=== PATIENT | male | born 1990 | race Two or more races ===

== ENCOUNTER 2016-12-16 00:23 | Emergency (ER) | payer OTHER ==
[2016-12-16] MEDS ORDERED: Cephalexin CAP* 500 MG PO ONE (02:31)
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
[2016-12-16] MEDS ORDERED: Bacitracin OINTMENT* 1 TUBE TOPICAL ONE (02:32)
[2016-12-16 02:58] VITALS: BP 122/81
== END 2016-12-16 02:58 | disposition home or self-care (01) ==
LOC: ED 00:23
DX: T23.112A Burn of first degree of left thumb (nail), initial encounter (principal); X10.2XXA Contact with fats and cooking oils, initial encounter; Y93.9 Activity, unspecified; Y92.9 Unspecified place or not applicable
CPT/HCPCS: 99282; A9270-GY